=== PATIENT | female | born 1985 | race Caucasian/White ===

== ENCOUNTER 2017-11-29 15:39 | Emergency (ER) | payer OTHER ==
[2017-11-29] MEDS ORDERED: ONDANSETRON HCL/PF 4 MG/ 2ML VIAL IVP ONE (15:58)
[2017-11-29 16:18] VITALS: BP 128/87
[2017-11-29] MEDS ORDERED: KETOROLAC TROMETHAMINE 30 MG/1ML VIAL IVP ONE (16:26)
--- NOTE | 2017-11-29 16:31 | ED Physician Documentation ---
Abdominal Pain - HISTORIAN Historian: patient - HPI Stated Complaint: RUQ pain Chief Complaint: Abdominal Pain Additonal Information: Episodes of sharp RIQ pain followed by vomiting for a year. Pain relieved in part by vomiting. Tells nurse she is here for gall bladder pain, but that diagnosis has not been made. No treatment sough or attempted, Nothign different that brought her to the ER today. She had diarrhea and vomited four times last night. Vomited once today. No fever or dysuria. Last normal bowel movement 11/27. Hysterectomy 7 years ago. No other modifying factors or associated events. Prescriptions records show she has filled Tramadol prescriptions twice in October. Onset: other (a year) Context: denies: out of country travel Quality: sharp - ROS CONST: no problems - SOCIAL HX Smoking History: cigarettes Alcohol Use: none Drug Use: none - FAMILY HX Family History: no significant history - PAST HX Past History: other (fibromyalgia) Surgeries/Procedures: hysterectomy, other (D&C, tonsillectomy) Home Medications: Ambulatory Orders Medication Instructions Recorded Clonazepam [Klonopin] 1 tab PO DAILY 11/29/17 Cyclobenzaprine HCl [Flexeril] 1 tab PO BID 11/29/17 DULoxetine HCL [Cymbalta] 2 tab PO DAILY 11/29/17 Pregabalin [Lyrica] 1 cap PO BID 11/29/17 Tizanidine HCl [Zanaflex] 1 cap PO TID 11/29/17 Zolpidem Tartrate [Ambien] 2 tab PO HS 11/29/17 Allergies/Adverse Reactions: Allergies Allergy/AdvReac Type Severity Reaction Status Date / Time chlorpromazine Allergy Verified 11/29/17 16:18 [From Thorazine] haloperidol [From Haldol] Allergy Verified 11/29/17 16:18 Iodinated Contrast- Oral and Allergy Verified 11/29/17 16:18 IV Dye nitrofurantoin Allergy Verified 11/29/17 16:18 [From Macrobid] trazodone Allergy Verified 11/29/17 16:18 - VITAL SIGNS Vital Signs: Vital Signs Temp Pulse Resp BP Pulse Ox 97.2 F L 94 H 16 128/87 96 11/29/17 15:45 11/29/17 15:45 11/29/17 15:45 11/29/17 15:45 11/29/17 15:45 Progress - Progress Progress: Report Submission Date: Nov 29, 2017 4:47:02 PM CDT Patient Study Name: BON SAMPSON Date: Nov 29, 2017 4:13:28 PM CDT Modality Type: DX Gender: F Description: CHEST,ABDOMEN : 85 Institution: [facility] Physician: ARON MCGRAW - ANUP PA chest and flat and upright abdomen History: Abdominal. Smoker. PA chest dated November 29, 2017 demonstrates a normal cardiomediastinal silhouette. Pulmonary vascularity is normal. There is no confluent infiltrate or pleural effusion. Flat and upright views of the abdomen were obtained which demonstrate no free air. There is increased stool throughout the colon consistent with moderate constipation. No dilated small bowel loops are noted. Small round calcifications are present in the pelvis bilaterally consistent with phleboliths. Impression: No acute cardiopulmonary process. Moderate constipation. Electronically signed on Nov 29, 2017 4:47:02 PM CDT by: Negin Dudley 1700, pain much better, nausea relieved. Has stool softeners at home. Plans to see primary provider in [place]. ED Results Lab/Radiology - Lab Results Lab Results: Lab Results 11/29/17 11/29/17 Unknown Unknown Sodium 140 mmol/L mmol/L (136-145) Potassium 3.6 mmol/L mmol/L (3.5-5.1) Chloride 101 mmol/L mmol/L (98-107) Carbon Dioxide 27 mmol/L mmol/L (22-30) BUN 14 mg/dL mg/dL (7-17) Creatinine 0.70 mg/dL mg/dL (0.52-1.04) Estimated Creat Clear 183 Est GFR ( Amer) > 60 (60 - ) Est GFR (Non-Af Amer) > 60 (60 - ) Glucose 101 mg/dL mg/dL (74-106) Calcium 9.7 mg/dL mg/dL (8.4-10.2) Total Bilirubin 0.2 mg/dL mg/dL (0.2-1.3) AST 23 U/L U/L (15-46) ALT 43 U/L U/L (13-69) Alkaline Phosphatase 78 U/L U/L (38-126) Total Protein 7.5 g/dL g/dL (6.3-8.2) Albumin 4.2 g/dL g/dL (3.5-5.0) Lipase 65 U/L U/L (23-300) - Orders Orders: ED Orders Category Date Time Status Place IV Lock 1T Care 11/29/17 15:58 Active ABDOMEN WITH PA CHEST [ABD SERIES PA CHEST] [RAD] Stat Exams 11/29/17 Taken CBC REF Routine Lab 11/29/17 16:14 Received CMP Routine Lab 11/29/17 Completed LIPASE Stat Lab 11/29/17 Completed URINALYSIS Routine Lab 11/29/17 Ordered Ketorolac Tromethamine [Toradol] Med 11/29/17 16:26 Discontinued 30 mg IVP NOW ONE Ondansetron HCl/Pf [Zofran 4 mg/2 ml] Med 11/29/17 15:58 Discontinued 4 mg IVP NOW ONE Abdominal Pain Physical Exam - Physical Exam General Appearance: alert, mild distress (anxious) EENT: eye inspection normal, ENT inspection normal, pharynx normal NECK: normal inspection, supple (non tender) RESPIRATORY: no resp distress, breath sounds normal CVS: reg rate & rhythm, heart sounds normal ABDOMEN: soft, tenderness (slight/apprehension?) BACK: normal inspection, no CVA tenderness SKIN: warm/dry, normal color EXTREMITIES: non-tender, normal range of motion (gait and stance), no evidence of injury NEURO: CN's nml as tested, motor nml, sensation nml Vital Signs: Vital Signs Temp Pulse Resp BP Pulse Ox 97.2 F L 94 H 16 128/87 96 11/29/17 15:45 11/29/17 15:45 11/29/17 15:45 11/29/17 15:45 11/29/17 15:45 Discharge Clincal Impression: Abdominal pain Qualifiers: Abdominal location: right upper quadrant Qualified Code(s): R10.11 - Right upper quadrant pain Constipation Qualifiers: Constipation type: unspecified constipation type Qualified Code(s): K59.00 - Constipation, unspecified Referrals: Primary Doctor,No [Primary Care Provider] - 2 Days Condition: Good Disposition: 01 HOME, SELF-CARE Decision to Admit: NO Decision Time: 17:00
[2017-11-29 16:37] LABS: eGFR (Non-African) > 60
[2017-11-29 17:51] LABS: BASO % 0.6 % (0.0-1.5); EOS % 2.9 % (0.0-6.8); LYMPH ABS # 1.95 thou/uL (0.60-4.00); MCH. 30.6 pg (28.0-34.0); MCV 92.3 fL (80.0-100.0); MONOCYTE % 6.7 % (0.0-11.0); MONOCYTE ABS # 0.46 thou/uL (0.00-0.90); PLATELET COUNT 449 thou/uL (130-400)
--- NOTE | 2017-11-29 19:54 | Diagnostic Imaging Report ---
ARON MCGRAW [facility] [address] [facility] [address] [address] Report Submission Date: Nov 29, 2017 4:47:02 PM CDT Patient Study Name: BON SAMPSON Date: Nov 29, 2017 4:13:28 PM CDT Modality Type: DX Gender: F Description: CHEST,ABDOMEN : 85 Institution: [facility] Physician: ARON MCGRAW PA chest and flat and upright abdomen History: Abdominal. Smoker. PA chest dated November 29, 2017 demonstrates a normal cardiomediastinal silhouette. Pulmonary vascularity is normal. There is no confluent infiltrate or pleural effusion. Flat and upright views of the abdomen were obtained which demonstrate no free air. There is increased stool throughout the colon consistent with moderate constipation. No dilated small bowel loops are noted. Small round calcifications are present in the pelvis bilaterally consistent with phleboliths. Impression: No acute cardiopulmonary process. Moderate constipation. Electronically signed on Nov 29, 2017 4:47:02 PM CDT by: Negin PATRICK
== END 2017-11-29 17:15 | disposition home or self-care (01) ==
LOC: ED 15:39
DX: K59.00 Constipation, unspecified (principal); R10.11 Right upper quadrant pain
CPT/HCPCS: 74022; 80053; 83690; 85025; 99283; S1016